=== PATIENT | male | born 1980 | race Caucasian/White ===

== ENCOUNTER → 2017-01-01 | Outpatient (CLI) | payer SELFPAY ==
--- NOTE | 2017-01-02 14:22 | CR ---
EXAM DATE: 01/01/17 PATIENT'S AGE: 36 Patient: NIRANJAN HUNG Facility: [place], [place] Site . Site : 1980 Study: XRay Shoulder [id number]/3/2017 5:19:56 PM Ordering Physician: Bianka Duran Final Report: Indication: Five days of pain. Technique: Three views. Impression: Anatomic glenohumeral and acromioclavicular alignment. No degenerative or inflammatory change. No bone lesion or fracture. Maintained acromial humeral distance. Dictated by Sacha Man MD @ Jan 02 2017 12:23PM (Electronic Signature) Report Signed by Proxy. DELPHINE
== END ==
LOC: MW.CHFP 16:43
PROVIDERS: ATTEND Nurse Practitioner Family
DX: M25.512 Pain in left shoulder (principal)
CPT/HCPCS: 73030-26-LT; 73030-LT

== ENCOUNTER 2020-01-15 18:13 | Emergency (ER) | payer BC ==
--- NOTE | 2020-01-15 18:16 | EDM.PDOC ---
ED HPI GENERAL MEDICAL PROBLEM - General Chief Complaint: Skin Complaint Stated Complaint: RIGHT FINGER INJURY Time Seen by Provider: 01/15/20 18:14 Source of Information: Reports: Patient History Limitations: Reports: No Limitations - History of Present Illness INITIAL COMMENTS - FREE TEXT/NARRATIVE: HISTORY AND PHYSICAL: History of present illness: Patient is a 39-year-old male who presents to the emergency room with complaints of a fishhook stuck into his right thumb. He states he has been trying to get it out for the past 1 hour and it is now becoming sore. He is unsure of his last tetanus update. Fish hook was older; had been used before. Denies any other extremity involvement. Offers no systemic complaints. Review of systems: As per history of present illness and below otherwise all systems reviewed and negative. Past medical history: As per history of present illness and as reviewed below otherwise noncontributory. Surgical history: As per history of present illness and as reviewed below otherwise noncontributory. Social history: See social history for further information Family history: As per history of present illness and as reviewed below otherwise noncontributory. Physical exam: General: Well-developed and well-nourished 39-year-old male. Alert and oriented. Nontoxic-appearing and in no acute distress. HEENT: Atraumatic, normocephalic, pupils equal and reactive bilaterally, negative for conjunctival pallor or scleral icterus, mucous membranes moist, trachea midline. No drooling or trismus noted. No meningeal signs. No hot potato voice noted. Lungs: Clear to auscultation, breath sounds equal bilaterally, chest nontender. Heart: S1S2, regular rate and rhythm without overt murmur Skin: [place] in the right thumb lateral and below the distal thumb joint. Three-pronged barbed fishhook, 1 of the prongs stuck into the medial aspect of the thumb. Otherwise remaining skin is intact, warm, dry. No lesions or rashes noted. Extremities: SEE SKIN, moves all extremities per self without difficulty or deficits. Neurovascular unremarkable. Neuro: Awake, alert, oriented. Cranial nerves II through XII unremarkable. Cerebellum unremarkable. Motor and sensory unremarkable throughout. Exam nonfocal. Notes: Percent lidocaine was used to anesthetize the area. The fishhook was pushed through and a fishhook clipper was used to remove the ashley and taken out. This was done without any complications. Area was thoroughly cleansed and irrigated. Bacitracin nonstick dressing was applied. Will place patient on Keflex. We discussed signs and symptoms that he should continue to monitor for. Supportive care measures were reviewed and discussed. Voices understanding and is agreeable to plan of care. Denies any further questions or concerns at this time. Diagnostics: None Therapeutics: Lidocaine, Bacitracin, Tdap Prescription: Keflex Impression: Fish Hook Removal Plan: 1. Keep the area clean and dry. Continue to monitor for signs of infection. Take the antibiotic as directed. 2. Tylenol and/or ibuprofen as needed for pain management. 3. Please follow-up with your primary care provider in the next 1-2 days. Return to the ED as needed and as discussed. Definitive disposition and diagnosis as appropriate pending reevaluation and review of above. Onset: Today Duration: Hour(s): FINGER Pain Score (Numeric/FACES): 1 - Related Data Allergies Allergy/AdvReac Type Severity Reaction Status Date / Time No Known Allergies Allergy Verified 01/15/20 18:37 Home Meds: Home Meds cephALEXin [Keflex] 500 mg PO BID 5 Days #10 cap 01/15/20 [Rx] ED ROS GENERAL - Review of Systems Review Of Systems: Comprehensive ROS is negative, except as noted in HPI. ED EXAM, SKIN/RASH Exam: See Below (See dictation) ED SKIN PROCEDURES - Foreign Body Removal Indication:: Fish hook removal of right thumb Consent Obtained:: Patient Performing Doctor:: [place]) Foreign Body Other Location Comment:: Right thumb Anesthesia Type: Local Complications:: No Comments:: See NOTES Course - Vital Signs Last Recorded V/S: Last Vital Signs Temp 98.0 F 01/15/20 18:15 Pulse 80 01/15/20 18:15 Resp 16 01/15/20 18:15 BP 152/88 H 01/15/20 18:15 Pulse Ox 96 01/15/20 18:15 - Orders/Labs/Meds Orders: Active Orders 24 hr Category Date Time Status Vaccines to be Administered [RC] PER UNIT ROUTINE Care 01/15/20 18:43 Active Meds: Medications Discontinued Medications Generic Name Dose Route Start Last Admin Trade Name Freq PRN Reason Stop Dose Admin Bacitracin 1 dose 01/15/20 18:25 01/15/20 18:35 Bacitracin Oint 1 Gm TOP 01/15/20 18:26 1 dose ONETIME ONE Administration Diphtheria/Tetanus/Acell Pertussis 0.5 ml 01/15/20 18:43 Adacel IM 01/15/20 18:44 .ONCE ONE Lidocaine HCl 2 ml 01/15/20 18:25 01/15/20 18:35 Xylocaine-Mpf 1% INJECT 01/15/20 18:26 2 ml ONETIME ONE Administration Departure - Departure Time of Disposition: 18:49 Disposition: Home, Self-Care 01 Clinical Impression: Fish hook injury of finger of right hand Qualifiers: Encounter type: initial encounter Qualified Code(s): S69.91XA - Unspecified injury of right wrist, hand and finger(s), initial encounter - Discharge Information Prescriptions: cephALEXin [Keflex] 500 mg PO BID 5 Days #10 cap Forms: ED Department Discharge Additional Instructions: The following information is given to patients seen in the emergency department who are being discharged to home. This information is to outline your options for follow-up care. We provide all patients seen in our emergency department with a follow-up referral. The need for follow-up, as well as the timing and circumstances, are variable depending upon the specifics of your emergency department visit. If you don't have a primary care physician on staff, we will provide you with a referral. We always advise you to contact your personal physician following an emergency department visit to inform them of the circumstance of the visit and for follow-up with them and/or the need for any referrals to a consulting specialist. The emergency department will also refer you to a specialist when appropriate. This referral assures that you have the opportunity for follow-up care with a specialist. All of these measure are taken in an effort to provide you with optimal care, which includes your follow-up. Under all circumstances we always encourage you to contact your private physician who remains a resource for coordinating your care. When calling for follow-up care, please make the office aware that this follow-up is from your recent emergency room visit. If for any reason you are refused follow-up, please contact the [facility] Emergency Department at and asked to speak to the emergency department charge nurse. [facility] [address] [place] [address] [facility] [address] [place] [address] 1. Keep the area clean and dry. Continue to monitor for signs of infection. Take the antibiotic as directed. 2. Tylenol and/or ibuprofen as needed for pain management. 3. Please follow-up with your primary care provider in the next 1-2 days. Return to the ED as needed and as discussed. Sepsis Event Note - Focused Exam Vital Signs: Vital Signs Temp Pulse Resp BP Pulse Ox 01/15/20 18:15 98.0 F 80 16 152/88 H 96 Date Exam was Performed: 01/15/20 Time Exam was Performed: 18:44 - My Orders Last 24 Hours: My Active Orders 01/15/20 18:43 Vaccines to be Administered [RC] PER UNIT ROUTINE - Assessment/Plan Last 24 Hours: My Active Orders 01/15/20 18:43 Vaccines to be Administered [RC] PER UNIT ROUTINE
[2020-01-15] MEDS ORDERED: Bacitracin Oint 1 GM U/D Packet TOP ONE (18:25)
[2020-01-15] MEDS ORDERED: Lidocaine 1% PF 2 ML SDV INJECT ONE (18:25)
[2020-01-15] MEDS ORDERED: Diphtheria,Pertussis(Acell),Tetanus Vaccine 0.5 ML Syringe IM ONE (18:43)
== END 2020-01-15 19:00 | disposition home or self-care (01) ==
LOC: MW.ED 18:13
DX: S60.351A Superficial foreign body of right thumb, initial encounter (principal); Z23 Encounter for immunization; W45.8XXA Other foreign body or object entering through skin, initial encounter
CPT/HCPCS: 64450; 90471; 90715; 99282; J2001; 10120